=== PATIENT | female | born 1990 | race Caucasian/White ===

== ENCOUNTER → 2017-03-08 | Outpatient (CLI) | payer OTHER ==
--- NOTE | 2017-03-08 17:46 | REP ---
Right rib series and PA chest: There are no comparisons. Right ribs four views: There is no rib fracture or other rib abnormality. PA chest: There is no pneumothorax, hemothorax or pulmonary contusion. Lung monique are clear. Cardiac size normal. The yaquelin, mediastinum, and bony thorax are unremarkable except for mild thoracic scoliosis convex right. Impression: Essentially negative PA chest. Signed by José Miguel Blood MD 03/08/2017 05:38 P
== END ==
LOC: EDBD → M LRY 17:08
PROVIDERS: ATTEND Physician Assistant
DX: S39.012A Strain of muscle, fascia and tendon of lower back, initial encounter (principal); X58.XXXA Exposure to other specified factors, initial encounter; Y92.9 Unspecified place or not applicable; Y93.9 Activity, unspecified; Y99.9 Unspecified external cause status

== ENCOUNTER → 2017-04-05 | Outpatient (REF) | payer OTHER | LOC: M SFHCLERA 12:58 | PROVIDERS: ATTEND Nurse Practitioner Family | DX: J02.9 Acute pharyngitis, unspecified (principal) ==